=== PATIENT | female | born 2005 | race Two or more races ===

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

== ENCOUNTER 2024-06-14 08:59 | Emergency (ER) | payer MEDICAID ==
[~2024-06-14] VITALS: Ht 157.5 cm; Wt 78.7 kg
[2024-06-14 09:35] VITALS: BP 119/77; PULSE 115; RESP 16; TEMP 98.7; O2SAT 97
[2024-06-14] MEDS: KETOROLAC TROMETH 60MG/2ML VIAL IM ONE (09:45)
[2024-06-14] MEDS ORDERED: IBUP-1456 PO (10:08)
[2024-06-14] MEDS ORDERED: BACL10TA PO (10:08)
== END 2024-06-14 10:11 | disposition home or self-care (01) ==
LOC: ER 08:59
DX: S29.011A Strain of muscle and tendon of front wall of thorax, initial encounter (principal); F41.9 Anxiety disorder, unspecified; F31.9 Bipolar disorder, unspecified; Z79.899 Other long term (current) drug therapy; X58.XXXA Exposure to other specified factors, initial encounter; Y93.89 Activity, other specified; Y92.89 Other specified places as the place of occurrence of the external cause; Y99.8 Other external cause status
CPT/HCPCS: 71046; 96372; 99283; J1885